=== PATIENT | male | born 1960 | race Hispanic/Latino ===

== ENCOUNTER 2018-01-29 23:08 | Emergency (ER) | payer OTHER, SELFPAY ==
[2018-01-29] MEDS ORDERED: TENECTEPLASE 50 MG/10 ML VIAL IV ONE (23:26)
[2018-01-29] MEDS ORDERED: NA CHLORIDE 0.9% 3,000 ML ONE (23:32)
[2018-01-29] MEDS ORDERED: NA CHLORIDE 0.9% 1,000 ML ONE (23:32)
[2018-01-29] MEDS ORDERED: NA CHLORIDE 0.9% 4,000 ML ONE (23:32)
[2018-01-29] MEDS ORDERED: METOPROLOL TAR 50 MG TAB ONE (23:36)
[2018-01-29] MEDS ORDERED: ASPIRIN 81 MG CHEWABLE TABLET ONE (23:36)
[2018-01-29] MEDS ORDERED: ONDANSETRON 4 MG/2 ML VIAL ONE (23:37)
[2018-01-29] MEDS ORDERED: METOPROLOL TARTRATE 5 MG/5 ML INJ IV ONE (23:37)
[2018-01-29] MEDS ORDERED: FAMOTIDINE 20 MG/2 ML VIAL IV ONE (23:37)
[2018-01-29] MEDS ORDERED: MORPHINE 4 MG/ML SYR ONE (23:37)
[2018-01-29] MEDS ORDERED: CLOPIDOGREL 75 MG TABLET ONE (23:38)
[2018-01-29 23:43] LABS: Absolute Monocytes 0.4 K/uL (0.1-1.3); Absolute Neutrophil 11.5 K/uL (1.8-8.0); Basophils % 0.3 % (0-1.3); Eosinophils % 0.2 % (0-4.4); Hematocrit 43.4 % (39.6-49.0); Lymphocytes % 7.8 % (15.3-44.8); MCH 30.4 pg (27.0-35.0); MCV 89.4 fL (80-100); MPV 10.1 fL (7.6-11.3); Monocytes % 3.4 % (3.3-12.3); RBC Red Blood Cell Count 4.85 M/uL (4.33-5.43)
--- NOTE | 2018-01-30 00:09 | ER ---
Nurse's Notes [facility] Name: Slade Bustos Age: 57 yrs Sex: Male : 1960 Arrival Date: 01/29/2018 Time: 23:14 Bed 4 Private MD: Diagnosis: ST elevation (STEMI) myocardial infarction of anterior wall;Other chest pain;Type 2 diabetes mellitus;Essential (primary) hypertension Presentation: 01/29 23:41 Presenting complaint: Patient states: chest pain started at approx 2100, pt states it tl2 felt like indigestion and the pain radiated down both arms. Pt was given 1 nitro and 324 mg aspirin on EMS, pt states pain decreased from a 8/10 to a 2/10. EKG in triage reported at STEMI. Transition of care: patient was not received from another setting of care. Onset of symptoms was January 29, 2018 at 21:00. Risk Assessment: Do you want to hurt yourself or someone else? Patient reports no desire to harm self or others. Initial Sepsis Screen: Does the patient meet any 2 criteria? No. Patient's initial sepsis screen is negative. Does the patient have a suspected source of infection? No. Patient's initial sepsis screen is negative. Care prior to arrival: Medication(s) given: ASA, 81 mg, x 4, Nitroglycerin, 0.4 mg SL x 1. 23:41 Method Of Arrival: EMS: [facility] tl2 23:41 Acuity: EDUAR 1 tl2 Historical: - Allergies: 23:45 NKDA; tl2 - Home Meds: 23:45 lisinopril Oral [Active]; Metformin Oral [Active]; tl2 - PMHx: 23:45 Diabetes - NIDDM; Hypertension; tl2 - PSHx: 23:45 Knee surgery; tl2 - Immunization history:: Adult Immunizations up to date. - Social history:: Smoking status: Patient/guardian denies using tobacco. - Family history:: not pertinent. - Ebola Screening: : No symptoms or risks identified at this time. Screenin:46 Abuse screen: Denies threats or abuse. Nutritional screening: No deficits noted. tl2 Tuberculosis screening: No symptoms or risk factors identified. Fall Risk None identified. Assessment: 23:20 General: Appears in no apparent distress. comfortable, Behavior is calm, cooperative, tl2 appropriate for age. Pain: Complains of pain in chest Pain radiates to right arm and left arm Pain currently is 2 out of 10 on a pain scale. Neuro: Level of Consciousness is awake, alert, obeys commands, Oriented to person, place, time, situation. Cardiovascular: Chest pain is described as mild, quality is indigestion, pressure, is located in anterior radiates to bilateral arm(s) began 2 hours prior to arrival. Respiratory: Airway is patent Respiratory effort is even, unlabored, Respiratory pattern is regular, symmetrical. GI: No signs and/or symptoms were reported involving the gastrointestinal system. : No signs and/or symptoms were reported regarding the genitourinary system. Derm: Skin is pink, warm \T\ dry. 01/30 00:10 Reassessment: [facility] at bedside to transport pt, pt AOx4. tl2 Vital Signs: 01/29 23:16 Weight 95.75 kg (M); tl2 23:45 BP 168 / 118; Pulse 88; Resp 18; Pulse Ox 97% on R/A; Weight 95.25 kg; Height 6 ft. 0 tl2 in. (182.88 cm); Pain 2/10; 23:45 Body Mass Index 28.48 (95.25 kg, 182.88 cm) tl2 ED Course: 23:14 Patient arrived in ED. em1 23:16 bhavin initiated transfer \T\2316. spoke to claudia march. gm 23:18 Avery Bernstein MD is Attending Physician. [facility] 23:30 dr villanueva and dr bernstein did doc to doc \T\2330. 23:30 administrative approval was given at 2330. gm 23:44 Triage completed. tl2 23:45 Arm band placed on right wrist. tl2 23:48 X-ray completed. Portable x-ray completed in exam room. Patient tolerated procedure az well. 23:52 Maintain EMS IV. Dressing intact. Good blood return noted. Site clean \T\ dry. Gauge \T\ tl 2 site: 20 g L AC. 23:52 Inserted saline lock: 18 gauge in right antecubital area, using aseptic technique. tl2 Blood collected. 23:53 XRAY Chest (1 view) In Process Unspecified. EDMS 01/30 00:09 Sofia Rinaldi RN is Primary Nurse. tl2 00:14 spoke with luis armando at [facility] at [phone] on 01/29/18. 00:15 faxed reports to [phone]. Administered Medications: 01/29 23:30 Drug: Heparin ([place]-Bolus with thrombolytic) - HEParin 60 units/kg {Co-Signature: rr5 tl2 (Damir Moctezuma RN).} Route: IVP; Site: right antecubital; 23:31 Drug: Heparin ([place] Drip) 12 units/kg/hr - (HEParin 91430 units, D5W 500 ml) tl2 {Co-Signature: rr5 (Damir Moctezuma RN).} Route: IV; Rate: calculated rate; Site: right antecubital; 01/30 00:10 Follow up: IV Status: Infusion continued upon transfer aa1 01/29 23:34 Drug: Zofran 4 mg Route: IVP; Site: left antecubital; tl2 23:34 Drug: Lopressor (metoprolol TARTRATE) 50 mg Route: PO; tl2 23:34 Drug: PlaVIX 600 mg Route: PO; tl2 23:34 Drug: Pepcid 20 mg Route: IVP; Site: left antecubital; tl2 23:35 Drug: morphine 4 mg Route: IVP; Site: left antecubital; tl2 23:36 Drug: Lopressor 2.5 mg Route: IVP; Site: left antecubital; tl2 23:38 Drug: Tenecteplase 50 mg {Co-Signature: rr5 (Damir Moctezuma RN).} Route: IV; Rate: per tl2 protocol; Site: left antecubital; 23:38 Follow up: IV Status: Completed infusion; given as IVP aa1 23:50 Drug: Lopressor 2.5 mg Route: IVP; Site: left antecubital; tl2 23:55 Drug: Aspirin 81 mg Route: PO; tl2 Intake: Outcome: 01/30 00:08 ER care complete, transfer ordered by MD. hillman 00:27 Patient left the ED. aa1 Signatures: Dispatcher [employer] EDMS Cookie Steele RN RN aa1 Avery Bernstein MD MD cha Martinez, Eric em1 Sofia Rinaldi RN RN tl2 Ailyn Venegas Gabriella Damir Moctezuma RN rr5
--- NOTE | 2018-01-30 00:09 | EDPHYS ---
Physician Documentation [facility] Name: Slade Bustos Age: 57 yrs Sex: Male : 1960 Arrival Date: 01/29/2018 Time: 23:14 Bed 4 Private MD: ED Physician Avery Bernstein HPI: 01/29 23:24 This 57 yrs old Male presents to ER via Unassigned with complaints of chest kady pain. 23:24 The patient or guardian reports chest pain that is located primarily in the substernal kady area. Onset: just prior to arrival. The pain does not radiate. Associated signs and symptoms: Pertinent positives: nausea, indigestion. The chest pain is described as a heaviness, causing indigestion, a pressure. Duration: The patient or guardian reports a single episode, that is still ongoing. Modifying factors: The symptoms are alleviated by nothing. the symptoms are aggravated by nothing. Severity of pain: At its worst the pain was mild moderate in the emergency department the pain is unchanged. The patient has not experienced similar symptoms in the past. Historical: - Allergies: 23:45 NKDA; tl2 - Home Meds: 23:45 lisinopril Oral [Active]; Metformin Oral [Active]; tl2 - PMHx: 23:45 Diabetes - NIDDM; Hypertension; tl2 - PSHx: 23:45 Knee surgery; tl2 - Immunization history:: Adult Immunizations up to date. - Social history:: Smoking status: Patient/guardian denies using tobacco. - Family history:: not pertinent. - Ebola Screening: : No symptoms or risks identified at this time. ROS: 23:24 Constitutional: Negative for fever, chills, and weight loss, Eyes: Negative for injury, kady pain, redness, and discharge, ENT: Negative for injury, pain, and discharge, Neck: Negative for injury, pain, and swelling, Respiratory: Negative for shortness of breath, cough, wheezing, and pleuritic chest pain, Abdomen/GI: Negative for abdominal pain, nausea, vomiting, diarrhea, and constipation, Back: Negative for injury and pain, : Negative for injury, bleeding, discharge, and swelling, MS/Extremity: Negative for injury and deformity, Skin: Negative for injury, rash, and discoloration, Neuro: Negative for headache, weakness, numbness, tingling, and seizure, Psych: Negative for depression, anxiety, suicide ideation, homicidal ideation, and hallucinations, Allergy/Immunology: Negative for hives, rash, and allergies, Endocrine: Negative for neck swelling, polydipsia, polyuria, polyphagia, and marked weight changes, Hematologic/Lymphatic: Negative for swollen nodes, abnormal bleeding, and unusual bruising. 23:24 Cardiovascular: Positive for chest pain, of the chest. Exam: 23:24 Constitutional: This is a well developed, well nourished patient who is awake, alert, kady and in no acute distress. Head/Face: Normocephalic, atraumatic. Eyes: Pupils equal round and reactive to light, extra-ocular motions intact. Lids and lashes normal. Conjunctiva and sclera are non-icteric and not injected. Cornea within normal limits. Periorbital areas with no swelling, redness, or edema. ENT: Nares patent. No nasal discharge, no septal abnormalities noted. Tympanic membranes are normal and external auditory canals are clear. Oropharynx with no redness, swelling, or masses, exudates, or evidence of obstruction, uvula midline. Mucous membranes moist. Neck: Trachea midline, no thyromegaly or masses palpated, and no cervical lymphadenopathy. Supple, full range of motion without nuchal rigidity, or vertebral point tenderness. No Meningismus. Chest/axilla: Normal chest wall appearance and motion. Nontender with no deformity. No lesions are appreciated. Cardiovascular: Regular rate and rhythm with a normal S1 and S2. No gallops, murmurs, or rubs. Normal PMI, no JVD. No pulse deficits. Respiratory: Lungs have equal breath sounds bilaterally, clear to auscultation and percussion. No rales, rhonchi or wheezes noted. No increased work of breathing, no retractions or nasal flaring. Abdomen/GI: Soft, non-tender, with normal bowel sounds. No distension or tympany. No guarding or rebound. No evidence of tenderness throughout. Back: No spinal tenderness. No costovertebral tenderness. Full range of motion. Male : Normal genitalia with no discharge or lesions. Skin: Warm, dry with normal turgor. Normal color with no rashes, no lesions, and no evidence of cellulitis. MS/ Extremity: Pulses equal, no cyanosis. Neurovascular intact. Full, normal range of motion. Neuro: Awake and alert, GCS 15, oriented to person, place, time, and situation. Cranial nerves II-XII grossly intact. Motor strength 5/5 in all extremities. Sensory grossly intact. Cerebellar exam normal. Normal gait. Psych: Awake, alert, with orientation to person, place and time. Behavior, mood, and affect are within normal limits. Vital Signs: 23:16 Weight 95.75 kg (M); tl2 23:45 BP 168 / 118; Pulse 88; Resp 18; Pulse Ox 97% on R/A; Weight 95.25 kg; Height 6 ft. 0 tl2 in. (182.88 cm); Pain 2/10; 23:45 Body Mass Index 28.48 (95.25 kg, 182.88 cm) tl2 MDM: 23:18 Patient medically screened. [facility] 23:29 Data reviewed: vital signs, nurses notes, lab test result(s), EKG, radiologic studies, kady plain films. 01/29 23:23 Order name: Basic Metabolic Panel [facility] 01/29 23:23 Order name: CBC with Diff [facility] 01/29 23:23 Order name: LFT's [facility] 01/29 23:23 Order name: Magnesium [facility] 01/29 23:23 Order name: NT PRO-BNP [facility] 01/29 23:23 Order name: PT-INR; Complete Time: 00:10 [facility] 01/29 23:23 Order name: Troponin (emerg Dept Use Only) [facility] 01/29 23:23 Order name: XRAY Chest (1 view) [facility] 01/29 23:23 Order name: EKG; Complete Time: 23:24 [facility] 01/29 23:23 Order name: Cardiac monitoring; Complete Time: 23:51 [facility] 01/29 23:23 Order name: EKG - Nurse/Tech; Complete Time: 23:52 [facility] 01/29 23:23 Order name: IV Saline Lock; Complete Time: 23:52 [facility] 01/29 23:23 Order name: Labs collected and sent; Complete Time: 23:52 [facility] 01/29 23:23 Order name: O2 Per Protocol; Complete Time: 23:52 [facility] 01/29 23:23 Order name: O2 Sat Monitoring; Complete Time: 23:52 [facility] 01/29 23:23 Order name: NPO; Complete Time: 23:51 [facility] Administered Medications: 23:30 Drug: Heparin ([place]-Bolus with thrombolytic) - HEParin 60 units/kg {Co-Signature: rr5 tl2 (Damir Moctezuma RN).} Route: IVP; Site: right antecubital; 23:31 Drug: Heparin ([place] Drip) 12 units/kg/hr - (HEParin 72881 units, D5W 500 ml) tl2 {Co-Signature: rr5 (Damir Moctezuma RN).} Route: IV; Rate: calculated rate; Site: right antecubital; 01/30 00:10 Follow up: IV Status: Infusion continued upon transfer aa1 01/29 23:34 Drug: Zofran 4 mg Route: IVP; Site: left antecubital; tl2 23:34 Drug: Lopressor (metoprolol TARTRATE) 50 mg Route: PO; tl2 23:34 Drug: PlaVIX 600 mg Route: PO; tl2 23:34 Drug: Pepcid 20 mg Route: IVP; Site: left antecubital; tl2 23:35 Drug: morphine 4 mg Route: IVP; Site: left antecubital; tl2 23:36 Drug: Lopressor 2.5 mg Route: IVP; Site: left antecubital; tl2 23:38 Drug: Tenecteplase 50 mg {Co-Signature: rr5 (Damir Moctezuma RN).} Route: IV; Rate: per tl2 protocol; Site: left antecubital; 23:38 Follow up: IV Status: Completed infusion; given as IVP aa1 23:50 Drug: Lopressor 2.5 mg Route: IVP; Site: left antecubital; tl2 23:55 Drug: Aspirin 81 mg Route: PO; tl2 Disposition: 01/30/18 00:08 Transfer ordered to [facility]. Diagnosis are ST elevation (STEMI) myocardial infarction of anterior wall, Other chest pain, Type 2 diabetes mellitus, Essential (primary) hypertension. - Reason for transfer: Higher level of care. - Accepting physician is TO [facility], CATH. - Condition is Serious. - Problem is new. - Symptoms have improved. Signatures: Dispatcher [employer] Cookie Grant RN RN aa1 Avery Bernstein MD MD cha Knox, Taylor, RN RN tl2 Damir Moctezuma RN rr5 Corrections: (The following items were deleted from the chart) 01/30 00:27 00:08 01/30/2018 00:08 Transfer ordered to [facility]. Diagnosis is aa1 ST elevation (STEMI) myocardial infarction of anterior wall; Other chest pain; Type 2 diabetes mellitus; Essential (primary) hypertension. Reason for transfer: Higher level of care. Accepting physician is TO [facility], CATH. Condition is Serious. Problem is new. Symptoms have improved. kady
[2018-01-30 00:13] LABS: ALT/SGPT 30 U/L (12-78); AST/SGOT 13 U/L (15-37); Albumin 3.7 g/dL (3.4-5.0); Alkaline Phosphatase 98 U/L (45-117); BUN Blood Urea Nitrogen 12 mg/dL (7-18); Bicarbonate 26 mmol/L (21-32); Bilirubin Direct < 0.1 mg/dL (0-0.2); Bilirubin Total 0.4 mg/dL (0.2-1.0); Magnesium 1.8 mg/dL (1.8-2.4); NT PRO-BNP 57 pg/mL (<125); Protein, Total 6.4 g/dL (6.4-8.2); Sodium Level 133 mmol/L (136-145); Troponin (Emerg Dept Use Only) 0.23 ng/mL (0.0-0.045)
[2018-01-30 00:15] LABS: Glucose Level 477 mg/dL (74-106); Potassium 5.9 mmol/L (3.5-5.1)
[2018-01-30 00:43] LABS: Blood Morphology Comment NOT SEEN (NOT SEEN); Platelet Estimate ADEQ; Urine White Blood Cell Casts OK
--- NOTE | 2018-01-30 06:58 | EKG ---
Test Date: 2018-01-29 Test Time: 23:11:27 Market Development Director: DREW MEASUREMENT RESULTS: Intervals: Rate: 77 NM: 158 QRSD: 84 QT: 368 QTc: 416 [place]: P: 46 NM: 158 QRS: -86 T: 12 INTERPRETIVE STATEMENTS: Sinus rhythm with occasional premature ventricular complexes Left axis deviation Low voltage QRS Anterior infarct, possibly acute ACUTE CA / STEMI Abnormal ECG Compared to ECG 08/19/2015 14:12:40 Ventricular premature complex(es) now present Left-axis deviation now present Low QRS voltage now present Myocardial infarct finding now present Electronically Signed On 01-30-18 06:57:56 BUSINESS INVESTOR by Jules Burton
--- NOTE | 2018-01-30 07:53 | RAD REPORT ---
EXAM DESCRIPTION: Zeynep Single View01/29/2018 11:53 pm CLINICAL HISTORY: Chest pain COMPARISON: none FINDINGS: The lungs appear clear of acute infiltrate. The heart is normal size IMPRESSION: No acute abnormalities displayed
== END 2018-01-30 00:27 | disposition short-term general hospital (02) ==
LOC: ER 23:08
DX: I21.09 ST elevation (STEMI) myocardial infarction involving other coronary artery of anterior wall (principal); I10 Essential (primary) hypertension; E11.9 Type 2 diabetes mellitus without complications
CPT/HCPCS: 36415; 71045; 80048; 80076; 83735; 83880; 84484; 85025; 85610; 92977; 93005; 99285; J2405; J3101; J7030